=== PATIENT | female | born 1970 | race Caucasian/White ===

== ENCOUNTER → 2017-12-23 | Emergency (ER) | payer OTHER ==
[~2017-12-23] VITALS: Ht 160 cm; Wt 69.9 kg
[~2017-12-23] MED LIST: PNEU16DI2; PROTONIX40 M1; SYNTHROID88 MCG
== END | disposition left against medical advice (07) ==
LOC: ER 19:53
DX: Z53.20 Procedure and treatment not carried out because of patient's decision for unspecified reasons (principal)